=== PATIENT | female | born 1995 | race Asian ===

== ENCOUNTER 2018-11-13 23:55 | Emergency (ER) | payer OTHER ==
[~2018-11-13] VITALS: Ht 167.6 cm; Wt 53.7 kg
[2018-11-14 00:06] VITALS: BP 124/85
[2018-11-14] MEDS: KETOROLAC 60 MG/2 ML VIAL IM ONE (01:15)
[2018-11-14] MEDS: ONDANSETRON 4 MG ODT PO ONE (01:16)
[2018-11-14] MEDS ORDERED: LIDOCAINE 1% ***ER ONLY *** 10 MG/ML VIAL INJ ONE (02:15)
[2018-11-14] MEDS ORDERED: LIDOCAINE MPF 1% - 5 mL VIAL 0 ML ONE (02:18)
[2018-11-14 02:24] VITALS: BP 121/84
== END 2018-11-14 02:24 | disposition home or self-care (01) ==
LOC: MED 23:55
DX: R10.84 Generalized abdominal pain (principal); R11.2 Nausea with vomiting, unspecified; R68.83 Chills (without fever)
CPT/HCPCS: 81002; 81025; 96372; 99283; J1885; Q0162; J2001